=== PATIENT | male | born 1980 | race Caucasian/White ===

== ENCOUNTER 2018-09-08 01:01 | Emergency (ER) | payer BC ==
[2018-09-08] MEDS ORDERED: Sucralfate 1 GM/10 ML UDCUP ONE ×2 (01:13→01:17)
[2018-09-08] MEDS ORDERED: Morphine 4 MG/ML VIAL ONE ×2 (01:17→01:44)
[2018-09-08] MEDS ORDERED: Ondansetron PF 4 MG/2 ML Vial ONE (01:17)
[2018-09-08 01:21] LABS: #Basophils 0.1 thou/uL (0.0-0.2); #Eosinphils 0.1 thou/uL (0.0-0.7); #Lymphocytes 3.4 thou/uL (1.20-3.40); #Monocytes 0.8 thou/uL (0.11-0.59); #Neutrophils 5.7 thou/uL (1.40-6.50); %Eosinophils 0.9 % (0.0-10.0); %Lymphocytes 33.5 % (21.0-51.0); %Monocytes 7.8 % (0.0-10.0); %Neutrophils 56.9 % (42.0-75.0); Hemoglobin 16.1 g/dL (14.0-18.0); Mean Corpuscular HGB CONC 33.7 g/dL (32.0-36.0); Mean Corpuscular Hemoglobin 30.4 pg (27.0-31.0); Mean Corpuscular Volume 90.4 fL (78.0-98.0); Platelet Count 215 thou/uL (130-400); RBC Distribution Width 11.9 % (11.5-14.5); Red Blood Cell (RBC) Count 5.28 mill/uL (4.70-6.10)
[2018-09-08 01:44] LABS: ALT (SGPT) 33 U/L (8-55); AST (SGOT) 29 U/L (5-34); Alkaline Phosphatase 78 U/L (40-150); Anion Gap 16 mmol/L (10-20); BUN (Urea Nitrogen) 16 mg/dL (8.9-20.6); Bilirubin, Total 0.2 mg/dL (0.2-1.2); CK (CPK) 316 U/L (30-200); Calc. Creatinine Clearance 0 mL/min (70-130); Calcium 9.3 mg/dL (7.8-10.44); Carbon Dioxide 21 mmol/L (22-29); Chloride 108 mmol/L (98-107); Estimated GFR-MDRD 71; Globulin 3.9 g/dL (2.4-3.5); Glucose 129 mg/dL (70-105); Lipase 62 U/L (8-78); Potassium 4.1 mmol/L (3.5-5.1); Protein, Total 7.9 g/dL (6.0-8.3); Sodium 141 mmol/L (136-145)
[2018-09-08] MEDS ORDERED: Lorazepam 2 MG/ML VIAL ONE (02:22)
[2018-09-08] MEDS ORDERED: Nitroglycerin 2% Ointment 1 INCH/1 GM Packet ONE (02:35)
[2018-09-08 03:36] LABS: Troponin I Less than 0.010 ng/mL (< 0.028)
[2018-09-08] MEDS ORDERED: hydrALAZINE 20 MG/ML VIAL ONE (03:54)
--- NOTE | 2018-09-08 07:44 | RAD ---
FRONTAL RADIOGRAPH CHEST: DATE: 09/08/2018. COMPARISON: None. HISTORY: Chest pain and chest pressure. FINDINGS: Heart and mediastinal contours are within normal limits. There is no pneumothorax, pleural fluid, fo mae consolidation, or alveolar edema. IMPRESSION: No acute findings. POS: [facility]
--- NOTE | 2018-09-08 08:08 | CT ---
PRELIMINARY REPORT/[facility]/EMERGENTY AFTER-HOURS PROCEDURE CT Angiography Chest With Contrast EXAM DATE/TIME: 09/08/2018 1:31 AM CLINICAL HISTORY: 38 years old, male; Pain; Chest pain; Patient HX: Patient reports having cp that radiates to his left arm and back. TECHNIQUE: Axial computed tomographic angiography images of the chest with intravenous contrast using CT angiogr aphy protocol. Coronal and sagittal reformatted images were created and reviewed. MIP reconstructed images were created and reviewed. COMPARISON: No relevant prior studies available. FINDINGS: Pulmonary arteries: There is no evidence of peripheral filling defects within the pulmonary arterial circulation to suggest pulmonary embolism. Aorta: The aorta is normal. There is no evidence of aortic dissection, leak, rupture, or other compli cations. Thyroid: The visualized thyroid gland is unremarkable. Lungs: There is subpleural atelectasis of the dependent portions of the lungs. Pleural space: Normal. No pneumothorax. No pleural effusion. Heart: Normal. No cardiomegaly. No pericardial effusion. Mediastinum: The trachea is normal. Lymph nodes: Unremarkable. No enlarged lymph nodes. Bones/joints: There are endplate degenerative changes with chronic compression deformity at T10. Soft tissues: Unremarkable. IMPRESSION: 1. There is no CT evidence of acute pulmonary embolism. 2. There is no evidence of aortic dissection, leak, rupture, or other complications. CT Angiography Abdomen With Contrast EXAM DATE/TIME: 09/08/2018 1:31 AM CLINICAL HISTORY: TECHNIQUE: Axial computed tomographic angiography images of the abdomen with intravenous contrast material, incl uding non-contrast images if performed. MIP and/or 3D reconstructed images were created and reviewed. Coronal and sagittal reformatted images were created and reviewed. MIP reconstructed images were created and reviewed. COMPARISON: No relevant prior studies available. FINDINGS: Lungs: Unremarkable. No consolidation. VASCULATURE: Aorta: The aorta is normal. There is no evidence of aortic dissection, leak, rupture, or other compli cations. Celiac trunk and mesenteric arteries: Patent. No occlusion or significant stenosis. Renal arteries: There are 2 patent RIGHT renal arteries. Patent LEFT renal artery. No occlusion or st enosis. ABDOMEN: Liver: There are no focal liver lesions identified. Gallbladder and bile ducts: The gallbladder is contracted but otherwise normal. Pancreas: The pancreas appears normal. No ductal dilatation. Spleen: The spleen is normal. Adrenals: The adrenal glands are normal. Kidneys and ureters: The kidneys appear normal. No hydronephrosis. Stomach and bowel: Unremarkable. No obstruction. No mucosal thickening. Intraperitoneal space: Unremarkable. No free air. No significant fluid collection. Bones/joints: Unremarkable. No acute fracture. No dislocation. Soft tissues: Unremarkable. Lymph nodes: Unremarkable. No enlarged lymph nodes. IMPRESSION: There is no evidence of aortic dissection, leak, rupture, or other complications. Thank you for allowing us to participate in the care of your patient. Dictated and Authenticated by: Kevyn Mcleod MD 09/08/2018 3:36 AM Central Time ([place] & [place]) FINAL REPORT CT ANGIOGRAM OF CHEST AND ABDOMEN - AORTIC DISSECTION PROTOCOL: DATE: 09/08/2018. COMPARISON: None. HISTORY: Chest pain radiating to the left arm and back. FINDINGS: I agree with the preliminary [facility] report dictated by Dr. Mcleod. No lymphadenopathy noted in the ch est. No pleural, pericardial, or mediastinal fluid. Incidental note is made of a nodule in the righ t middle lobe measuring 4 mm. There is an additional nodule in the region of the superior segment ri ght lower lobe measuring 7 mm. There is no evidence for dissection or aneurysm of the thoracic aorta. There is mild atherosclerotic calcification involving the common iliac artery on the right. Abdomina l aorta demonstrates no evidence for aneurysm or dissection. Hypodensity of the hepatic parenchyma suggests steatosis. Gallbladder, spleen, pancreas, adrenal gla nds, and kidneys are unremarkable. Visualized bowel appears grossly unremarkable. No abdominal adenopathy. Osseous structures demonstrate multilevel displace narrowing and anterior osteophyte formation of the lower thoracic spine. No acute osseous abnormality. IMPRESSION: 1. No evidence for aneurysm or dissection of the thoracic or abdominal aorta. 2. Incidental note made of pulmonary nodules measuring up to 7 mm. Recommend followup chest CT in 6 -12 months to document stability. CODE T POS: [facility]
[2018-09-08] MEDS ORDERED: ISOVUE-370 76%-LOCM 1 ML ONE (16:49)
== END 2018-09-08 04:29 | disposition home or self-care (01) ==
LOC: ERS 01:01
DX: R07.2 Precordial pain (principal); E78.00 Pure hypercholesterolemia, unspecified; K21.9 Gastro-esophageal reflux disease without esophagitis; F17.210 Nicotine dependence, cigarettes, uncomplicated; Z79.899 Other long term (current) drug therapy
CPT/HCPCS: 36415; 71045; 71275; 80053; 82550; 83690; 84484; 85025; 85379; 93005; 96374; 96375; J0360; J2060; J2270; J2405

== ENCOUNTER 2019-06-27 09:51 | Outpatient (CLI) | payer BC ==
--- NOTE | 2019-06-27 11:35 | CT ---
CHEST CT WITH CONTRAST: COMPARISON: 09/08/2018. HISTORY: Follow-up pulmonary nodules. FINDINGS: Mediastinum: No mass, lymphadenopathy or hematoma. Redemonstration of an enlarged right paratracheal lymph node with a preserved fatty hilum. Lymph node has not changed in size and measures 1.9 x 0.8 cm. Aorta: The thoracic and upper abdominal aorta have a normal caliber. No periaortic fat stranding. Heart: Normal heart size. No significant pericardial fluid. Lower neck and axilla: No lymphadenopathy or masses. Upper abdomen: Visualized upper solid organs are unremarkable. Osseous structures: Chronic changes of the spine are noted.. Trachea and central bronchi: Patent. Pneumothorax: None. Pleural spaces: Right lun mm nodule in the right upper lobe. Two separate subpleural nodules adjacent to the gayla r fissure measuring 3 and 6 mm respectively. Ill-defined solid nodule in the right upper lobe measuring 0.5 cm. When compared to the previous exam, no significant change with regards of nodules. Left lung: No masses or nodules. IMPRESSION: Stable nodules in the right lung. Follow-up imaging in September of 2020 can performed to demonstrate 2 years of stability. CODE T Transcribed Date/Time: 06/27/2019 11:45 AM
== END 2019-06-27 09:52 | disposition home or self-care (01) ==
LOC: BICCT 09:51
PROVIDERS: ATTEND Family Medicine
DX: R91.8 Other nonspecific abnormal finding of lung field (principal)
CPT/HCPCS: 71260

== ENCOUNTER 2019-07-11 06:47 | Day surgery (SDC) | payer BC ==
[2019-07-10 09:34] VITALS: BMI 43.0
[2019-07-11] MEDS ORDERED: Oxymetazoline HCl 0.05% ( 15 ML ) ONE ×3 (07:15→11:14)
[2019-07-11] MEDS ORDERED: Bacitracin Zinc Ointment 30 gm TUBE ONE ×2 (08:08→11:14)
[2019-07-11] MEDS ORDERED: Lidocaine 1% w/Epinephrine 1:100K 20 ML VIAL ONE ×2 (08:08→11:13)
[2019-07-11] MEDS ORDERED: Midazolam HCl 2 mg/2 ml Vial ONE (09:03)
[2019-07-11] MEDS ORDERED: Fentanyl 100 MCG/2 ML VIAL ONE ×3 (09:03→12:15)
[2019-07-11] MEDS ORDERED: PROPOFOL 20 ML ONE (10:52)
[2019-07-11] MEDS ORDERED: Labetalol HCl 100 MG/20 ML VIAL ONE (12:05)
[2019-07-11] MEDS ORDERED: PROPOFOL 200 MG/20 ML VIAL ONE (13:11)
[2019-07-11] MEDS ORDERED: Ondansetron PF 4 MG/2 ML Vial ONE (13:11)
[2019-07-11] MEDS ORDERED: Metoclopramide HCl 10 MG/2 ML VIAL ONE (13:11)
[2019-07-11] MEDS ORDERED: Rocuronium Bromide 10 MG/ML (10ML VIAL) ONE (13:11)
[2019-07-11] MEDS ORDERED: Ketorolac Tromethamine 30 MG/ML VIAL ONE (13:11)
[2019-07-11] MEDS ORDERED: Dexamethasone 20 MG/5 ML VIAL ONE (13:11)
[2019-07-11] MEDS ORDERED: PHENYLEPHRINE-NS 100 MCG/ML 10 ML SYRINGE ONE (13:11)
[2019-07-11] MEDS ORDERED: hydrALAZINE 20 MG/ML VIAL ONE (13:26)
--- NOTE | 2019-07-11 22:52 | OP ---
DATE OF PROCEDURE: 07/11/2019 PREOPERATIVE DIAGNOSES: Nasal congestion, septal deviation, and turbinate hypertrophy. POSTOPERATIVE DIAGNOSES: Nasal congestion, septal deviation, and turbinate hypertrophy. PROCEDURES PERFORMED: Septoplasty and submucosal reduction of inferior turbinates. PERMIT: Procedures, benefits, risks including those of bleeding, infection, injury to anesthesia, allergic reaction or perforation necessitating revision or repair of sinus surgery or septum surgery, and alternatives reviewed with the patient and family who expressed understanding of the information and consent form was signed and witnessed, and a paper copy of the consent form is available for review in the paper chart. INDICATIONS: This is a male patient, presenting to clinic with exam findings of severe left deviated septum anteriorly and posterior deviated right septum with a large septal spur. The patient has had chronic nasal congestion that is refractory to medical management and patient is presenting for operative treatment. ASSISTANTS: None. FINDINGS: Severe left anterior deviated septum and septal spur, right posterior deviated septum and turbinate hypertrophy, and severe turbinate hypertrophy. DESCRIPTION OF PROCEDURE: The patient was brought to the operating room and laid supine on the operating room table. General endotracheal anesthesia was administered in the bed, was taken down from Anesthesia gently. The septum was then infiltrated bilaterally with 1% lidocaine to 1:100,000 epinephrine and 6 Afrin-soaked cottonoid sponges were placed in the bilateral nasal cavities, three on each side. The patient was prepped and draped in the usual fashion. Next, the patient was seen to have a severe left anterior deviation of the septum. At this point, hemitransfixion incision was made on the left side, followed by elevation of the mucoperichondrial flap on the left side toward the bony cartilaginous junction. Then, posterior to the incision about 1 cm, a cartilaginous incision was made with a 15 blade and then a suction Sibley was then used to elevate the opposite side of the mucoperichondrial flap. The bony spur and the deviation along the floor were taken down using a combination of the Stef double-action scissors and suction freer. Care was taken to avoid destabilizing the caudal septum and the dorsal septum. A portion of the bony septum was seen to be deviating significantly to the left and to the right side. At this point in time, that portion was taken down using a combination of double-action scissors and Marlee forceps. After this was performed, next, evaluation of the nose was performed with endoscope and mucoperichondrial flaps were reapproximated using 4-0 chromic suture in a mattress fashion. A 5-0 chromic suture was then used to close the hemitransfixion incision. Bilateral inferior turbinate reductions were then performed. A stab incision was made using the oscillating microdebrider and then the mucosal flap over the turbinates was elevated, first starting on the left side. Oscillating debrider was then used in the pocket to remove the erectile tissue from inside the inferior turbinates, first on the left side and then the exact procedure was performed on the right side. Both the inferior turbinates were then lateralized and then the suction Bovie was then used to cauterize any bleeding from the stab incision site. Next, the sinuses were evaluated in the nasal cavity on both sides. There was no bleeding. Septal splints were then placed bilaterally. Daniel splints were then secured with a 2-0 silk stitch anteriorly. Afrin spray was placed bilaterally to keep the patient from bleeding and then the endoscope was gently withdrawn and the patient was found to tolerate the procedure well without complications, was then turned back over to Anesthesia for emergence. Job ID: [id number]
== END 2019-07-11 14:45 | disposition home or self-care (01) ==
LOC: SDC 06:47
PROVIDERS: ATTEND Student in an Organized Health Care Education/Training Program
PROC: 09BL3ZZ Excision of Nasal Turbinate, Percutaneous Approach (ICD-10-PCS; principal; 2019-07-11)
PROC: 09BM0ZZ Excision of Nasal Septum, Open Approach (ICD-10-PCS; principal; 2019-07-11)
DX: J34.2 Deviated nasal septum (principal); J34.89 Other specified disorders of nose and nasal sinuses; G47.33 Obstructive sleep apnea (adult) (pediatric); J35.2 Hypertrophy of adenoids; E78.5 Hyperlipidemia, unspecified; K21.9 Gastro-esophageal reflux disease without esophagitis; Z88.6 Allergy status to analgesic agent; Z88.5 Allergy status to narcotic agent; F17.210 Nicotine dependence, cigarettes, uncomplicated; Z79.899 Other long term (current) drug therapy
CPT/HCPCS: J0360; J1100; J1885; J2250; J2405; J2704; J2765; J3010

== ENCOUNTER 2020-12-12 15:59 | Emergency (ER) | payer BC ==
[~2020-12-12 15:59] MED LIST: Iopamidol-370 76% 500 ML 1 ML ONE
[2020-12-12 16:23] LABS: #Eosinphils 0.1 thou/uL (0.0-0.7); #Lymphocytes 2.6 thou/uL (1.20-3.40); #Monocytes 0.9 thou/uL (0.11-0.59); #Neutrophils 11.8 thou/uL (1.40-6.50); %Basophils 0.3 % (0.0-1.0); %Eosinophils 0.9 % (0.0-10.0); %Lymphocytes 16.6 % (21.0-51.0); %Monocytes 5.7 % (0.0-10.0); %Neutrophils 76.5 % (42.0-75.0); Hemoglobin 15.3 g/dL (14.0-18.0); Mean Corpuscular HGB CONC 33.8 g/dL (32.0-36.0); Mean Corpuscular Volume 88.9 fL (78.0-98.0); Mean Platelet Volume 7.2 fL (7.4-10.4); Platelet Count 258 thou/uL (130-400); RBC Distribution Width 12.7 % (11.5-14.5); Red Blood Cell (RBC) Count 5.11 mill/uL (4.70-6.10); White Blood Cell (WBC) Count 15.4 thou/uL (4.8-10.8)
[2020-12-12] MEDS ORDERED: Fentanyl 100 MCG/2 ML VIAL ONE (16:26)
[2020-12-12 16:44] LABS: ALT (SGPT) 30 U/L (8-55); AST (SGOT) 25 U/L (5-34); Alkaline Phosphatase 101 U/L (40-110); Anion Gap 15 mmol/L (10-20); BUN (Urea Nitrogen) 16 mg/dL (8.9-20.6); Bilirubin, Total 0.2 mg/dL (0.2-1.2); Calc. Creatinine Clearance 0 mL/min (70-130); Calcium 8.8 mg/dL (7.8-10.44); Carbon Dioxide 24 mmol/L (22-29); Chloride 103 mmol/L (98-107); Globulin 3.7 g/dL (2.4-3.5); Glucose 208 mg/dL (70-105); Lipase 37 U/L (8-78); Potassium 4.2 mmol/L (3.5-5.1); Protein, Total 7.7 g/dL (6.0-8.3); Sodium 138 mmol/L (136-145)
[2020-12-12] MEDS ORDERED: Nitroglycerin 2% Ointment 1 INCH/1 GM Packet ONE (17:46)
[2020-12-12] MEDS ORDERED: Morphine 4 MG/ML VIAL ONE (19:23)
[2020-12-12] MEDS ORDERED: Ondansetron PF 4 MG/2 ML Vial ONE (19:23)
== END 2020-12-12 21:42 | disposition home or self-care (01) ==
LOC: ERS 15:59
DX: R07.89 Other chest pain (principal); R59.0 Localized enlarged lymph nodes; R91.8 Other nonspecific abnormal finding of lung field; R10.816 Epigastric abdominal tenderness; E78.00 Pure hypercholesterolemia, unspecified; K21.9 Gastro-esophageal reflux disease without esophagitis; F17.210 Nicotine dependence, cigarettes, uncomplicated; Z79.899 Other long term (current) drug therapy
CPT/HCPCS: 71045; 71275; 76705; 80053; 83690; 84484; 85025; 85379; 93005; 96374; 96375; J2270; J2405; J3010; Q9967

== ENCOUNTER 2020-12-17 07:33 | Outpatient (CLI) | payer BC | END 2020-12-17 07:34 | disposition home or self-care (01) | LOC: PET 07:33 | PROVIDERS: ATTEND Internal Medicine Hematology & Oncology | DX: R91.8 Other nonspecific abnormal finding of lung field (principal) | CPT/HCPCS: 78815; A9552 ==

== ENCOUNTER 2021-01-13 08:00 | Outpatient (CLI) | payer BC | END 2021-01-13 08:01 | disposition home or self-care (01) | LOC: NM 08:00 | PROVIDERS: ATTEND Surgery | DX: R10.11 Right upper quadrant pain (principal) | CPT/HCPCS: 78227; A9537 ==